=== PATIENT | male | born 1965 | race Caucasian/White ===

== ENCOUNTER → 2023-12-12 | Outpatient (CLI) | payer SELFPAY, OTHER ==
--- NOTE | 2023-12-12 08:13 | CT_ITS ---
STUDY: CT ABDOMEN AND PELVIS WITH CONTRAST REASON FOR EXAM: Male, 58 years old. BENIGN PROSTATIC HYPERPLASIA. Right ureteral stent was placed due to obstructing abdominal mass. RADIATION DOSAGE (If Supplied By Facility): CTDIvol = ( 12.37 ) mGy, DLP = ( 567.42 ) mGycm TECHNIQUE: Transaxial images were obtained from the dome of the diaphragm to the symphysis pubis without oral contrast. IV 100mL Isovue-300 was administered. Sagittal and coronal images were reconstructed. Individualized dose optimization techniques were used for this CT. COMPARISON: None. FINDINGS: Minimal linear scarring in the posterior aspect of the lingular segment of the left upper lobe. Coronary artery calcification. The visualized portions of the heart are within normal limits. Normal liver. Normal gallbladder and extrahepatic biliary system. Normal spleen. Normal pancreas. Normal bilateral adrenal glands. A right-sided double-J stent catheter has been placed. Mild residual right hydronephrosis. The distal tip of the right double-J stent catheter is at the right ureterovesical junction. Normal left kidney. Normal visualized stomach. Normal small intestine. Normal colon. The appendix is visualized and appears normal. There is diffuse atherosclerotic calcification of the abdominal aorta, without a demonstrated aneurysm. Normal inferior vena cava. There is retroperitoneal lymphadenopathy with enlarged nodes greater than 10-15mm in the short axis. This is more prominent on the right side. Normal urinary bladder. Heterogeneous enlargement of the prostate. The prostate measures 5.4 cm x 6.1 cm. This causes indentation at the bladder base. Normal abdominal wall. Degenerative changes of the sacroiliac joints bilaterally. Straightening of the normal lumbar lordosis. CT/Abdomen/Pelvis W IV Cont ONLY IMPRESSION: Retroperitoneal lymphadenopathy right greater than left. Residual mild right hydronephrosis. Prostatic enlargement with indentation at the bladder base. Electronically Signed: Andrea Sigala MD at 13:05 EDT ,
== END | disposition home or self-care (01) ==
PROVIDERS: Referring Provider Urology; Visit Provider Urology
DX: N13.39 Other hydronephrosis (principal)
CPT/HCPCS: 74177; Q9967

== ENCOUNTER 2024-12-19 12:04 | Day surgery (SDC) | payer OTHER, SELFPAY ==
[2024-12-19] VITALS (8 sets, daily range): BP systolic 120–135; BP diastolic 80–85; PULSE 68–87; RESP 16–20; TEMP 36.7–37.1; O2SAT 95–98; BMI 21.4
--- NOTE | 2024-12-19 12:40 | PCM.PRE.AN2 ---
ASA Classification* ASA Classification ASA Classification: 2 Assessment & Plan Anesthesia* Anesthesia Assessment Anesthesia Assessment: Discussed sedation and/or anesthesia options, risks, benefits, and alternatives with patient/parents/legal guardian/POA. Questions invited. The patient/parents/legal guardian/POA seems to understand and agrees to proceed with anesthesia plan. Reviewed the physical assessment, medical history, allergy history and patient home medications list prior to surgery/procedure/anesthetic and documented any changes. Performed airway and anesthesia risk assessments. 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 When Was Last Pacemaker Check QUESTION #4 FULL TEXT: You/Your Family Experience fever (hyperthermia) with Anesthesia Last Oral Intake Last Oral intake: Last Oral Intake NPO since 05:00 12/19/24 12:25 Meds taken in AM with sips of water? Meds patient instructed to vomited after morning meds 12/19/24 12:25 take am of surgery PONV PONV - fixed wing aircraft flight engineer: PONV - fixed wing aircraft flight engineer Female HX of Motion Sickness HX of N/V After Surgery Non-Smoker Duration of Surgery greater than 60 minutes Number of Risk Factors PONV Score Height & Weight Height & Weight: Anesthesia: Height & Weight Height 5 ft 8 in 12/19/24 12:25 Weight: 64 kg 12/19/24 12:25 Body Mass Index (BMI) 21.4 12/19/24 12:25 Respiratory Assessment Respiratory Assessment - fixed wing aircraft flight engineer: Respiratory Tract Infection Hx - fixed wing aircraft flight engineer Hx Respiratory Tract Infection STOP Sleep Apnea STOP Sleep Apnea - fixed wing aircraft flight engineer: STOP Sleep Apnea - fixed wing aircraft flight engineer Hx Hypertension Hx Sleep Apnea CPAP BIPAP Do you snore loudly (louder than talking or can be heard Do you often feel tired/ fatigued/ sleepy during daytime? Has anyone observed you stop breathing during sleep? STOP Results QUESTION #5 FULL TEXT : Do you snore loudly (louder than talking or can be heard through closed doors)? 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 Specify any problems Hx of Preganancy in last 3 Months Nurse Filling Out Transfusion & Questions: Date: Time: Patient unable to answer at this time (ie. confused, unrespo /Reproduction History /Reproductive History - fixed wing aircraft flight engineer: /Reproductive Hx- fixed wing aircraft flight engineer Hx Now Gestational Age (in weeks): EDC: Hx Hx Para Hx Section SAB PFSH Home Medications ?Medication ?Instructions ?Recorded ?Last Taken ?Type acyclovir 400 mg tablet 400 mg PO BID 12/19/24 12/18/24 History finasteride 5 mg tablet 5 mg PO DAILY 12/19/24 12/18/24 History levofloxacin 500 mg tablet 500 mg PO DAILY 12/19/24 12/19/24 History ondansetron HCl 8 mg tablet 8 mg PO Q8H PRN PRN nausea/vomiting 12/19/24 Unknown History pantoprazole 40 mg tablet,delayed 40 mg PO DAILY 12/19/24 12/18/24 History release prednisone 50 mg tablet 100 mg PO DAILY 12/19/24 11/26/24 History prochlorperazine maleate 10 mg 10 mg PO Q6H PRN PRN nausea and 12/19/24 Unknown History tablet vomiting Allergy/AdvReac Type Severity Reaction Status Date / Time No Known Allergies Allergy Verified 12/19/24 12:19 Review of Systems (Anesthesia) ROS Narrative System reviewed and no additional complaints, except as documented.
--- NOTE | 2024-12-19 15:26 | PCM.HP.STD ---
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 So the plan for cystoscopy right stent placement [facility] Medical History (Updated 12/19/24 @ 12:43 by Digna Hernandez RN) Hydronephrosis Follicular lymphoma Home Medications ?Medication ?Instructions ?Recorded ?Last Taken ?Type acyclovir 400 mg tablet 400 mg PO BID 12/19/24 12/18/24 History finasteride 5 mg tablet 5 mg PO DAILY 12/19/24 12/18/24 History levofloxacin 500 mg tablet 500 mg PO DAILY 12/19/24 12/19/24 History ondansetron HCl 8 mg tablet 8 mg PO Q8H PRN PRN nausea/vomiting 12/19/24 Unknown History pantoprazole 40 mg tablet,delayed 40 mg PO DAILY 12/19/24 12/18/24 History release prednisone 50 mg tablet 100 mg PO DAILY 12/19/24 11/26/24 History prochlorperazine maleate 10 mg 10 mg PO Q6H PRN PRN nausea and 12/19/24 Unknown History tablet vomiting Allergy/AdvReac Type Severity Reaction Status Date / Time No Known Allergies Allergy Verified 12/19/24 12:19 Surgical History (Updated 12/19/24 @ 12:44 by Digna Hernandez RN) History of removal of ureteral stent Social History (Updated 12/19/24 @ 12:45 by Digna Hernandez RN) Smoking Status: Never smoker alcohol intake: never do you feel safe at home: Yes Vital Signs Vital Signs Vital Signs: 12/19/24 12:25 12/19/24 12:25 12/19/24 12:41 Temperature 98.1 F 98.1 F Temperature Source Temporal Pulse Rate 68 68 Respiratory Rate 16 16 Respiratory Pattern Normal Blood Pressure 135/84 H 135/84 H Blood Pressure Mean 101 Blood Pressure Source Monitor Blood Pressure Position Semi-Fowlers Blood Pressure Location Left Arm Pulse Ox 98 98 Oxygen Delivery Method Room Air Weight Weight: 64 kg Body Mass Index (BMI) 21.4
--- NOTE | 2024-12-19 15:27 | DCINST_ITS ---
Discharge Instructions Diet Discharge Diet: No restrictions DC O2, CPAP, BIPAP needs Home O2 Discharge instructions: No Dressing / Incision Discharge Activity: Return to Normal Activity and May Not Drive (while taking narcotic pain medications.) Dressing / Incision Call your doctor if you observe: Fever of 101 or Higher Follow Up Care Please Follow Up With: Kiran Suarez MD When: Call [phone] for an appointment Test Results: Test results from this visit will be discussed in further detail at your follow- up appointment, if applicable. Discharge Plan Admission Attending Provider: Kiran Suarez Primary Care Provider: Care PhysicianKhalida Primary Instructions Print Language: Frisian Discharge Orders/Prescriptions Prescriptions: No Action ondansetron HCl 8 mg tablet 8 mg PO Q8H PRN PRN (Reason: nausea/vomiting) prochlorperazine maleate 10 mg tablet 10 mg PO Q6H PRN PRN (Reason: nausea and vomiting) acyclovir 400 mg tablet 400 mg PO BID levofloxacin 500 mg tablet 500 mg PO DAILY finasteride 5 mg tablet 5 mg PO DAILY pantoprazole 40 mg tablet,delayed release (DR/EC) 40 mg PO DAILY prednisone 50 mg tablet 100 mg PO DAILY Patient Comments: week november 26 Referrals / Follow Up: Care Physician,No Primary [Primary Care Provider] - Disposition Disposition (needs filled in before D/C Order can be placed): Home, Self Care
--- NOTE | 2024-12-19 16:05 | PCM.POST.ANE ---
Anesthesia: Postop Eval I Current Vital Signs Temperature: 98.2 F Pulse Rate: 81 Blood Pressure: 121/82 Respiratory Rate: 20 Pulse Ox: 97 Oxygen Delivery Method: Room Air Assessment Airway patent: Yes Spontaneous unlabored respirations: Yes Mental status: Awake nausea: No Vomiting: No Anesthesia Complication: No Fluid Hydration Crystalloid volume administer (ml): 250 Total IV fluid infused: 250 Progress Note Anesthesia document: Postop Eval 1 completed: Yes
--- NOTE | 2024-12-19 16:10 | POSTOPAN2_ITS ---
Anesthesia Postop Eval I Sum Postop Eval Completion status Anesthesia document: Postop Eval 1 completed: Yes Anesthesia Postop Eval I Summary Anesthesia Postop Eval I Summary: Anesthesia Postop Eval I: Assessment Summary Airway patent Yes 12/19/24 16:06 [email or web address] Spontaneous unlabored Yes 12/19/24 16:06 [email or web address] respirations Mental status Awake 12/19/24 16:06 [email or web address] nausea No 12/19/24 16:06 [email or web address] Vomiting No 12/19/24 16:06 [email or web address] Anesthesia Postop Eval I: Fluid Summary Crystalloid volume administer 250 12/19/24 16:06 [email or web address] (ml) Colloids volume administered ( ml) Blood Product volume administered (ml) Total IV fluid infused 250 12/19/24 16:06 [email or web address] Anesthesia Postop Eval I: Summary Notes Anesthesia Complication No 12/19/24 16:06 [email or web address] Anesthesia Complication Comment: Post-operative progress note Anesthesia: Postop Eval II Evaluation Mental status: Awake Pain Level: 0 nausea: No Vomiting: No
--- NOTE | 2024-12-19 16:10 | PCM.POSTANE2 ---
Anesthesia Postop Eval I Sum Postop Eval Completion status Anesthesia document: Postop Eval 1 completed: Yes Anesthesia Postop Eval I Summary Anesthesia Postop Eval I Summary: Anesthesia Postop Eval I: Assessment Summary Airway patent Yes 12/19/24 16:06 [email or web address] Spontaneous unlabored Yes 12/19/24 16:06 [email or web address] respirations Mental status Awake 12/19/24 16:06 [email or web address] [email or web address] nausea No 12/19/24 16:06 [email or web address] Vomiting No 12/19/24 16:06 [email or web address] Anesthesia Postop Eval I: Fluid Summary Crystalloid volume administer 250 12/19/24 16:06 [email or web address] (ml) Colloids volume administered ( ml) Blood Product volume administered (ml) Total IV fluid infused 250 12/19/24 16:06 [email or web address] Anesthesia Postop Eval I: Summary Notes Anesthesia Complication No 12/19/24 16:06 [email or web address] Anesthesia Complication Comment: Post-operative progress note Anesthesia: Postop Eval II Evaluation Mental status: Awake Pain Level: 0 nausea: No Vomiting: No
--- NOTE | 2024-12-19 16:24 | PCM.OPRPT ---
Operative Report (Standard) Operative Information Date of Procedure: 12/19/24 Pre-Operative Diagnosis: Right hydronephrosis Post-Operative Diagnosis: Same Surgery/Procedure Performed: Cystoscopy right retrograde pyelogram right stent placement admission liaison: No Type of Anesthesia: General RN Documented Start/Stop Times: Operation Date: 12/19/24 13:45 Case Time Into Pre-Op 12/19/24 12:24 Out of Pre-Op 12/19/24 15:32 Anesthesia Start 12/19/24 15:36 Into Room 12/19/24 15:36 Procedure Start 12/19/24 15:48 Procedure End 12/19/24 15:55 Anesthesia End 12/19/24 16:00 Into Recovery 12/19/24 16:00 Out of Room 12/19/24 16:00 Procedure Start Time: 15:48 Procedure Stop Time: 15:55 Select all DRAINS/GRAFTS/IMPLANTS that apply: Drains Drain details: Right stent Estimated Blood Loss: 0 Specimen collected: No Description of surgery: Patient was taken back to the operating room after smooth induction of anesthesia he was placed in dorsolithotomy position within the bladder with a 21 [place] rigid cystourethroscope cannulated the right ureter orifice with a Pollick catheter and contrast performed a right retrograde pyelogram I could see contrast going up and hydronephrotic right kidney the exact source of the place where was causing obstruction was not clear but it was the kidney was swollen I put a wire up into the right kidney over the wire placed a stent it was a 6 [place] by 26 cm stent once in good position I pulled the wire and the stent coiled in the kidney and bladder in good position the patient's bladder was drained and is taken back to the PACU in good condition he will go home today. Surgical Findings: Right hydronephrosis Complications Complications: No Admit VTE Documentation VTE Present on Admission: No VTE Mechan Device Prophylaxis: SCD's VTE Pharm Prophylaxis ordered?: No
== END 2024-12-19 17:02 | disposition home or self-care (01) ==
LOC: SDC 12:07 → AC 12:07
PROVIDERS: Referring Provider Urology; Visit Provider Urology
PROC: (CPT 52332; principal; 2024-12-19 13:35)
DX: N13.39 Other hydronephrosis (principal); C82.99 Follicular lymphoma, unspecified, extranodal and solid organ sites
CPT/HCPCS: 52332; 00910; 76000; A4216; C1769; C2617